=== PATIENT | female | born 1965 | race Caucasian/White ===

== ENCOUNTER → 2023-12-08 14:09 | Outpatient (REF) | payer BC, SELFPAY | LOC: RAD 14:09 | PROVIDERS: ATTENDING PHYSICIAN Nurse Practitioner Adult Health | DX: R10.12 Left upper quadrant pain (principal) | CPT/HCPCS: 76700 ==

== ENCOUNTER 2024-06-06 13:25 | Emergency (ER) | payer BC, SELFPAY ==
[2024-06-06 13:53] VITALS: BMI 27.7
[2024-06-06 14:13] LABS: % Basophils 0.5 % (0-2); % Eosinophils 0.3 % (0-6); % Immature Granulocytes 0.2 % (0-0.5); % Lymphocytes 22.9 % (20.5-51.1); % Monocytes 6.2 % (1.7-9.3); % Neutrophils 69.9 % (42.2-75.2); Absolute Lymphocytes 1.3 10^3/uL (1.2-3.4); Absolute Monocytes 0.4 10^3/uL (0.1-0.6); Absolute Neutrophils 4.1 10^3/uL (1.4-6.5); Hematocrit 42.2 % (37.0-47.0); Hemoglobin 14.9 g/dL (12.0-16.0); Mean Corp Hgb Conc. 35.3 g/dL (33.0-37.0); Mean Corpuscular Hgb 29.5 pg (27.0-31.0); Mean Corpuscular Volume 83.6 fL (81.0-99.0); Mean Platelet Volume 9.4 fL (7.4-10.4); Nucleated Red Blood Cells % 0 %; Platelet Count 216 10^3/uL (130-400); Red Blood Cell Count 5.05 10^6/uL (4.20-5.40); Red Cell Dist. Width 12.6 % (11.5-14.5); White Blood Cell Count 5.8 10^3/uL (4.8-10.8)
--- NOTE | 2024-06-06 14:23 | ED.GENMED ---
History of Present Illness
<EVERARDO Hess - Last Filed: 06/06/24 15:27>
General
Chief Complaint: Abdominal Pain
Source: patient
Exam Limitations: none
Time Seen by Provider: 06/06/24 14:04
History of Present Illness
History of Present Illness:
58 y/o female with a PMH of hypothyroidism presenting to the ED c/o LUQ abdominal pain x 3 weeks. Pt states she has been having LUQ pain for 3 weeks, initially pain would come and go but now it seems to be constant. States it radiates to the back
and comes on about 6 hours after eating. Has decreased PO intake to only water and crackers for the past few days, came in today because now the pain has worsened even with water. Reports associated nausea that started today and 1 incidence of loose
stool today, denies any blood or mucus. Has not had any prior workups for this and has not tried anything OTC. Pt declined anything for nausea. Denies any fever, chest pain, SOB, vomiting, constipation, urinary symptoms. Hx of abdominal surgeries
include 3 caesareans and a total hysterectomy.
<Augie Ponce DO - Last Filed: 06/06/24 16:25>
History of Present Illness
History of Present Illness:
58 y/o female with a PMH of hypothyroidism presenting to the ED c/o LUQ abdominal pain x 3 weeks. Pt states she has been having LUQ pain for 3 weeks, initially pain would come and go but now it seems to be constant. States it radiates to the back
and comes on about 6 hours after eating. Has decreased PO intake to only water and crackers for the past few days, came in today because now the pain has worsened even with water. Reports associated nausea that started today and 1 incidence of loose
stool today, denies any blood or mucus. Has not had any prior workups for this and has not tried anything OTC. Pt declined anything for nausea. Denies any fever, chest pain, SOB, vomiting, constipation, urinary symptoms. Hx of abdominal surgeries
include 3 caesareans and a total hysterectomy.
58-year-old female who presents presents with left upper quadrant abdominal pain is ongoing for weeks. Patient states that she also had it months ago for some time but it seemed a little better after having an outpatient ultrasound. Pain comes and
goes that is worse about 6 hours after eating or drinking. She states sometimes she fast that seems to be better. She does have a history of irritable bowel syndrome. No fevers. No vomiting. No diarrhea. No constipation. No melena. No
hematochezia. No weight loss. No rash. No chest pain.
Past History
<EVERARDO Hess - Last Filed: 06/06/24 15:27>
Past History
ED Past Medical History: Hypothyroidism
ED Past Surgical History: Gynecological (total hysterectomy) and Other (Total thyroidectomy)
Review of Systems
<Franco Deras [facility] - Last Filed: 06/06/24 15:27>
Review of Systems
Allergies reviewed?: Yes
Constitutional: Reports no symptoms
EENT: Reports no symptoms
Respiratory: Reports no symptoms
Cardiac: Reports no symptoms
ABD/GI: Reports abdominal pain, nausea, anorexia (decreased PO intake) and other (loose stools)
: Reports no symptoms
Musculoskeletal: Reports back pain
Skin: Reports no symptoms
Neurological: Reports no symptoms
Phy Exam
<Franco Deras [facility] - Last Filed: 06/06/24 15:27>
General Physical Exam
General Presentation: well appearing and no apparent distress
General age: appears stated age
General Skin: warm and dry
General Habitus: normal
General Mental: alert
General Hydration: appears well hydrated
ENT Exam
ENT Exam: neck supple and normocephalic
Eye Exam
Eye Exam: conjunctiva normal
Cardiovascular Exam
Cardiovascular Exam: regular rate/rhythm and no murmur
Pulmonary Exam
Pulmonary Exam: lungs clear, no respiratory distress and chest non tender
Gastrointestinal Exam
Gastrointestinal Exam: normal bowel sounds, soft, no organomegaly, no pulsatile mass, non distended, no cva tenderness and tender
Palpation: left upper quadrant: Minimal tenderness, left lower quadrant: No tenderness, right upper quadrant: No tenderness and right lower quadrant: No tenderness
Skin Exam
Skin Exam: normal color, warm/dry and no rash
<Augie Ponce DO - Last Filed: 06/06/24 16:25>
Physical Exam
Physical Exam:
CONSTITUTIONAL Patient alert and oriented to person, place and time. Well-appearing. Vital signs reviewed.
HEAD atraumatic, normocephalic.
EYES eyelids normal to inspection, Extraocular muscles intact, Conjunctiva normal, Sclera normal.
NECK normal range of motion, Trachea midline, no jugular venous distention.
RESPIRATORY CHEST No respiratory distress noted, Chest expansion equal, Bilateral breath sounds clear.
CARDIOVASCULAR regular rate and rhythm, Heart sounds normal.
ABDOMEN abdomen nontender, Bowel sounds normal. No distention. No rash
BACK normal inspection, no obvious deformities
UPPER EXTREMITY range of motion normal, Motor strength normal, no cyanosis, no edema.
LOWER EXTREMITY range of motion normal, Motor strength normal, no cyanosis, no edema.
NEURO Speech normal, No focal motor deficits, Nandini coma scale 15, Memory normal, Cranial Nerves intact to screening exam.
SKIN skin warm, dry, and normal in color.
Course
<EVERARDO Hess - Last Filed: 06/06/24 15:27>
Orders/Labs/Results
Orders:
Orders
06/06/24 13:51
IV Insert/Care/Rem.- Treatment PRN
Urinalysis Reflex To Culture Urgent
Date Specimen was Collected: 06/06/24
Time Specimen was Collected: 13:51
Test Result ONCE
06/06/24 13:53
Complete Blood Count/With Diff Urgent
Comprehensive Metabolic Panel Urgent
Free T4 Urgent
HCG, Serum Qualitative Screen Urgent
Comment: Notify provider if positive test present
Lipase Urgent
TSH Reflex To Free T4 Urgent
Comment: ADD ON
06/06/24 13:58
0.9% Sodium Chloride 1000 ml [Nss] 1,000 ml IV BOLUS
06/06/24 13:59
Add On- LAB Urgent
Tests Added?: tsh reflex t4
06/06/24 14:22
EKG [Electrocardiogram (*1)] Urgent
Reason for Study: Abdominal Pain
Abnormal Lab Results
06/06/24
13:53
BUN 5 L mg/dl
(7-17)
TSH (Reflex) 0.08 L uIU/ml
(0.47-4.68)
06/06/24 13:53
06/06/24 13:53
Vital Signs
Initial and Last Documented VS:
Initial Vital Signs
Temp Pulse Resp Pulse Ox
97.9 F 94 18 97
06/06/24 13:30 06/06/24 13:30 06/06/24 13:30 06/06/24 13:30
Last Documented Vital Signs
Temp Pulse Resp BP Pulse Ox
98.5 F 88 17 130/78 99
06/06/24 15:26 06/06/24 15:26 06/06/24 15:26 06/06/24 15:26 06/06/24 15:26
<Augie Ponce, - Last Filed: 06/06/24 16:25>
Orders/Labs/Results
Orders:
Orders
06/06/24 13:51
IV Insert/Care/Rem.- Treatment PRN
Urinalysis Reflex To Culture Urgent
Date Specimen was Collected: 06/06/24
Time Specimen was Collected: 13:51
Test Result ONCE
06/06/24 13:53
Complete Blood Count/With Diff Urgent
Comprehensive Metabolic Panel Urgent
Free T4 Urgent
HCG, Serum Qualitative Screen Urgent
Comment: Notify provider if positive test present
Lipase Urgent
TSH Reflex To Free T4 Urgent
Comment: ADD ON
06/06/24 13:58
0.9% Sodium Chloride 1000 ml [Nss] 1,000 ml IV BOLUS
06/06/24 13:59
Add On- LAB Urgent
Tests Added?: tsh reflex t4
06/06/24 14:22
EKG [Electrocardiogram (*1)] Urgent
Reason for Study: Abdominal Pain
Abnormal Lab Results
06/06/24
13:53
BUN 5 L mg/dl
(7-17)
TSH (Reflex) 0.08 L uIU/ml
(0.47-4.68)
06/06/24 13:53
06/06/24 13:53
Vital Signs
Initial and Last Documented VS:
Initial Vital Signs
Temp Pulse Resp Pulse Ox
97.9 F 94 18 97
06/06/24 13:30 06/06/24 13:30 06/06/24 13:30 06/06/24 13:30
Last Documented Vital Signs
Temp Pulse Resp BP Pulse Ox
98.5 F 88 17 130/78 99
06/06/24 15:26 06/06/24 15:26 06/06/24 15:26 06/06/24 15:26 06/06/24 15:26
<Augie Ponce DO - Last Filed: 06/06/24 16:25>
MDM/Problems Addressed
Differential Diagnosis Includes:
Pancreatitis, colitis, diverticulitis, constipation, gastritis, esophagitis
MDM/Problems Addressed:
Abdominal pain
<Augie Ponce DO - Last Filed: 06/06/24 16:25>
*Pulse Oximetry
Patient hypoxic: no
*EKG
Interpreted by ED Provider?: Yes
Interpretation: normal
Rate: normal
Rhythm: sinus
[place]: normal axis
QRS Pattern: normal QRS
Ischemia: no ischemia
*Critical Care Note
Total Time (30-74mins, 75-104mins- exclusive of procedures): Not Applicable
Data Reviewed
Source: patient
Further Testing Considered But Not Given:
Consider CT imaging. However symptoms been ongoing for some time and patient would like to hold off on imaging at this time. I do think this is reasonable given her normal labs and symptoms over even months
<Augie Ponce DO - Last Filed: 06/06/24 16:25>
Patient Management
Escalation/DeEscalation of care consider admission/obs:
Appears quite well. Labs reassuring. Will trial PPI daily for the next 3 to 4 weeks but refer to GI for outpatient follow-up. May benefit from outpatient imaging and/or endoscopy/colonoscopy
ED Attending Note
<EVERARDO Hess - Last Filed: 06/06/24 15:27>
-
Portions of this chart may have been created with voice recognition software.� Occasional wrong word or��sound alike� substitutions may have occurred due to the inherent limitations of voice recognition software.
<Augie Ponce DO - Last Filed: 06/06/24 16:25>
ED Attending Note
Patient seen and examined by attending physician: Yes
Discharge Plan
Departure
Patient Disposition: Home (Routine Discharge)
Date of Disposition: 06/06/24
Time of Disposition: 16:23
Patient with high blood pressure during this ER visit?: No
Discharge Problem:
Abdominal pain
Instructions: Abdominal Pain
Prescriptions:
New
pantoprazole [Protonix] 40 mg tablet,delayed release (DR/EC)
40 mg PO DAILY Qty: 30 0RF
Rx Instructions:
Please take 30 minutes prior to eating or drinking anything in the morning.
Referrals:
Kelsie Oconnell CRNP [Family Provider] -
Trish Osuna, [Active] -
Activity Restrictions/Additional Instructions:
Please see your doctor or gastroenterology next 1 to 2 weeks for follow-up and reevaluation. If symptoms persist, an endoscopy, colonoscopy or abdominal imaging may be necessary. Return immediately to the emergency department for fevers, vomiting,
blood in the stool, black stools or any other concerns.
Interventions
Interventions:
*Risk Screen - Suicide Last Done: 06/06/24 13:32
*General Assessment Last Done: 06/06/24 13:32
*Neglect/Abuse Screening Last Done: 06/06/24 13:32
*ED- Fall Risk Assessment Last Done: 06/06/24 13:53
*ED COVID-19 Vaccine History Last Done: 06/06/24 13:53
[id number] Assessment Last Done: 06/06/24 14:25
Discharge Date and Time
Print Language: MARSHALLESE
[2024-06-06 14:25] VITALS: BP 135/76
[2024-06-06 14:30] LABS: ALT (SGPT) 18 U/L (0-35); AST (SGOT) 26 U/L (14-36); Albumin 4.7 g/dl (3.5-5.0); Alkaline Phosphatase 76 U/L (38-126); Blood Urea Nitrogen 5 mg/dl (7-17); Calcium 9.8 mg/dl (8.4-10.2); Carbon Dioxide 25 mmol/L (22-30); Chloride 104 mmol/L (98-107); Estimated Creatinine Clearance 97 ml/min; Glucose 98 mg/dl (70-99); Lipase 260 U/L (23-300); Potassium 3.9 mmol/L (3.5-5.1); Sodium 140 mmol/L (135-145); Total Protein 7.6 g/dl (6.3-8.2); eGFR > 60.00
[2024-06-06 14:31] LABS: HCG, Serum Qualitative Screen Negative
--- NOTE | 2024-06-06 15:03 | EDRN ---
Report to KIRSTIN Santos
[2024-06-06 15:26] VITALS: BP 130/78
[2024-06-06 16:16] LABS: TSH Reflex To Free T4 0.08 uIU/ml (0.47-4.68)
[2024-06-06 16:45] LABS: Free T4 2.69 ng/dl (0.78-2.19)
== END 2024-06-06 16:40 | disposition home or self-care (01) ==
LOC: EMR 13:25
PROVIDERS: EMERGENCY PHYSICIAN Emergency Medicine; FAMILY PHYSICIAN Nurse Practitioner Adult Health
DX: R10.12 Left upper quadrant pain (principal); E03.9 Hypothyroidism, unspecified
CPT/HCPCS: 99283; 80053; 83690; 84439; 84443; 84703; 85025; 93005; 94640